=== PATIENT | male | born 1955 | race Caucasian/White ===

== ENCOUNTER 2019-10-23 09:33 | Day surgery (SDC) | payer MEDICARE ==
[~2019-10-23] VITALS: Ht 182.9 cm; Wt 85.5 kg
--- NOTE | ~2019-10-23 | HEMODYNAMI ---
PATIENT:OLIVER MAURICE MEDICAL RECORD: [id number] : 51 LOCATION:D. ADMISSION DATE: 10/23/19 Generatedon:10/23/201913:58 Patient name: OLIVER MAURICE Patient #: [id number] SSN: : Date of study: 10/23/2019 Page: Of Hemodynamic Procedure Report Patient Data Patient Demographics Procedure consent was obtained First Name: OLIVER Gender: Male Last Name: JOSAFAT : 1955 Middle Initial: D Age: 64 year(s) Patient #: [id number] Race: Unknown Additional ID: [id number] Contact details [address]: [address] [place] [address] State: [place] City: [place] Zip code: [address] Past Medical History Allergies Allergen Reaction Date Comments Reported Natural rubber 10/23/2019 and latex Admission Admission Data Admission Date: 10/23/2019 Admission Time: 9:33 Height (in.): 72 BSA: 2.08 (m2) Height (cm.): 182.88 BMI: 25.5 (kg/m2) Weight (lbs.): 188 Weight (kg.): 85.28 Procedure Procedure Types Cath Procedure Peripheral Cath Diagnostic Procedure Cable Swager Peripheral Procedures Miscellaneous PARACENTESIS WITH GUIDE Procedure Description Procedure Date Procedure Date: 10/23/2019 Procedure Start Time: 13:31 Procedure Staff Name Function Celine Pacheco MD Performing Physician Ines Murphy RT Batch Trucker Natalia Flor RN Nurse Sam Lieberman RT Scrub Hemodynamics Rest BSA: 2.08 (m2) O2 Consumption: Estimated: 239.77 (ml/min) O2 Consumption indexed : Estimated:115.27 (ml/min/m) Heart Rate: 67 (bpm) Snapshots Pre Cath Intra NCS Post Cath Vital Signs Time Heart Resp SPO2 etCO2 NIBP (mmHg) Rhythm Pain Sedation Rate (ipm) (%) (mmHg) Status Level (bpm) 13:24:20 70 0 81 0 146/80(110) NSR 0 (11) 10(A) , No pain 13:28:34 70 7 0 148/80(114) NSR 0 (11) 10(A) , No pain 13:32:46 74 15 0 157/90(119) NSR 0 (11) 10(A) , No pain 13:37:02 79 16 0 151/86(119) NSR 0 (11) 10(A) , No pain 13:41:16 72 17 0 147/84(124) NSR 0 (11) 10(A) , No pain 13:45:28 71 17 0 146/85(100) NSR 0 (11) 10(A) , No pain 13:49:40 70 15 0 143/85(123) NSR 0 (11) 10(A) , No pain 13:53:48 83 17 0 158/93(123) NSR 0 (11) 10(A) , No pain Procedure Log Time Note 13:21:03 Patient Height : 72 inches 13:21:07 Patient Weight : 188 lbs 13:21:38 Time tracking: Regular hours (M-F 7:00 - 5:00) 13:21:59 Patient received from Outpatients to IR Alert and oriented. Tansferred to table in Supine position. 13:22:02 Signed procedure consent form obtained from patient. 13:22:08 - 13:22:13 Pre-procedure instructions explained to patient. 13:22:15 Pre-op teaching completed and patient verbalized understanding. 13:22:22 Family unavailable. 13:22:27 Patient NPO since Midnight. 13:22:54 Patient allergic to Natural rubber and latex 13:23:11 ECG and BP/O2 sat monitors applied to patient. 13:23:13 Vital chart was started 13:23:20 Baseline sample Acquired. 13:23:25 Baseline sample Acquired. 13:23:31 Baseline sample Acquired. 13:23:41 Baseline sample Acquired. 13:24:05 Right abdomen area was prepped with chlora-prep and draped in sterile fashion 13:24:12 - 13:24:26 [id number] 8FR CATH DRAIN TRAY opened to sterile field. 13:24:33 - 13:24:43 Fire Safety Assessment: A--An alcohol-based skin anteseptic being used preoperatively., C--Open oxygen or nitrous oxide is being used. 13:25:17 CONNECTING TUBE FOR DRAINAGE BAG ([id number]) opened to sterile field. 13:30:32 Physician arrived 13:30:33 --------ALL STOP TIME OUT------ 13:30:34 Final Timeout: patient, procedure, and site verified with staff and physician. All members of the team are in agreement. 13:31:45 Full Disclosure recording started 13:31:57 Local anesthetic to Abdominal area with Lidocaine 1% by Celine Pacheco MD.INITIAL ACCESS ONLY 13:35:45 Procedure started. 13:56:28 Dermabond Pen opened to sterile field. 13:56:39 5.5 liters 13:56:45 Procedure ended.(Physican Out) 13:56:51 Sharps counted by scrub and verified by R.N. 13:56:59 Insertion/operative site no bleeding no hematoma. 13:57:13 Post Abdominal area:stable 13:57:16 Procedure and supply charges have been captured, reviewed, submitted an d are correct. 13:57:18 Post procedure instruction explained to patient.Patient verbalizes understanding. 13:57:22 Report given to Outpatients. 13:57:26 Patient transfered to Outpatients with Stretcher. 13:58:04 Vital chart was stopped Device Usage Item Name Manufacture Quantity Catalog Hospital Part Current Mini mal Lot# / Number Charge Number Stock Stock Serial# Code [id number] Care[employer]usion 1 [id number] 8FR CATH DRAIN TRAY CONNECTING TUBE [place] 1 [id number] FOR DRAINAGE Scientific BAG ([id number]) Dermabond Pen [employer] 1 [id number] Signature Audit [place] Stage Time Signature Unsigned Intra-Procedure 10/23/2019 Sam 1:58:00 PM Mio RT (R) (CV) [id number] [place] [address]
[2019-10-23 10:36] LABS: BASOPHILS 0.3 % (0-2); EOSINOPHILS 1.2 % (0-7); HEMATOCRIT 40.5 % (42.0-54.0); HEMOGLOBIN 13.1 g/dL (13.5-17.5); IMMATURE GRANULOCYTES 0.3 % (0-5); LYMPHOCYTES 9.2 % (15-50); MCH 29.9 pg (26.0-34.0); MCHC 32.3 g/dL (31.0-37.0); MCV 92.5 fL (80.0-100.0); MEAN PLATELET VOLUME 11.3 fL (7.4-10.4); PLATELET COUNT 201 10x3/uL (130-400); RBC 4.38 10x6/uL (4.20-6.10); RDW 15.6 % (11.5-14.5); WBC 9.9 10x3/uL (4.8-10.8)
[2019-10-23 10:39] LABS: APTT 30.1 SECONDS (22.8-39.4); INR 0.97 (0.85-1.17); PROTIME 12.8 SECONDS (11.6-15.0)
[2019-10-23 10:40] VITALS: BP 147/81; Ht 182.9 cm; Wt 85.5 kg
[2019-10-23] MEDS ORDERED: NORVASC5 MG PO (10:45)
[2019-10-23] MEDS ORDERED: ALDACTONE100 MG PO (10:45)
[2019-10-23] MEDS ORDERED: BACTRIM 400-801 TAB PO (10:46)
[2019-10-23] MEDS ORDERED: FUROSEMIDE40 MG PO (10:46)
[2019-10-23] MEDS ORDERED: OXYCODONE H5 MG/5 ML PO (10:47)
[2019-10-23 10:56] LABS: ALBUMIN 2.9 g/dL (3.4-5.0); ANION GAP 10.6 mmol/L (8-16); BILIRUBIN - TOTAL 1.31 mg/dL (0.2-1.3); CALCIUM 8.8 mg/dL (8.5-10.1); CARBON DIOXIDE 30.2 mmol/L (21.0-32.0); CREATININE - SERUM 1.1 mg/dL (0.6-1.3); POTASSIUM - SERUM 3.8 mmol/L (3.5-5.1); PROTEIN - SERUM 8.2 g/dL (6.4-8.2)
--- NOTE | 2019-10-23 15:26 | NUR ---
LEFT FOREARM PIV DC'D WITH TIP INTACT. DISCHARGE INSTRUCTIONS REVIEWED WITH PATIENT AND SPOUSE, PATIENT DRESSING IN PERSONAL CLOTHING. PATIENT DISCHARGED AMBULATING INDEPENDENTLY AT 1530
== END 2019-10-23 15:30 | disposition home or self-care (01) ==
LOC: D.SP 09:33 → D.US 11:30 → D.SP 11:30 → D.CT 13:00 → D.SP 15:30
PROVIDERS: Radiology Vascular & Interventional Radiology; ATTEND Family Medicine Adult Medicine
DX: B19.20 Unspecified viral hepatitis C without hepatic coma (principal)